=== PATIENT | female | born 1945 | race Caucasian/White ===

== ENCOUNTER → 2016-10-15 | Outpatient (CLI) | payer BC ==
[~2016-10-15] MED LIST: AMLO10TA2 PO; ASPI325T4 PO; CALC600T PO; CIPR-255 PO; EZET10TA63 PO; GARL400T4 PO; HYDR12.56 PO; METO25TA56 PO; OMEG7.5C PO; ONDA4TAB7 SL; SIMV40TA2 PO
[2016-10-15 13:23] LABS: BASO % 0.8 %; BASO ABS # 0.06 K/uL (0-0.2); COMPLETE YES; EOS % 3.4 %; IG% 0.1 %; LYMPH % 33.1 %; MEAN CELL VOLUME 86.9 fL (80-100); MEAN CORPUSCULAR HEMOGLOBIN 29.7 pg (25-34); MEAN CORPUSCULAR HGB CONC 34.1 g/dl (32-36); MEAN PLATELET VOLUME 10.1 fL (7.4-10.4); MONO % 6.9 %; NEUT % 55.7 %; PLATELET COUNT 307 K/uL (130-400); RED BLOOD COUNT 4.72 M/uL (4.2-5.4); WHITE BLOOD COUNT 7.56 K/uL (4.8-10.8)
[2016-10-15 13:43] LABS: ALT/SGPT 21 U/L (12-78); AST/SGOT 17 U/L (15-37); BLOOD UREA NITROGEN 18 mg/dl (7-18); BUN/CREATININE RATIO 21.6 (10-20); CALCIUM 9.3 mg/dl (8.5-10.1); CARBON DIOXIDE 32 mmol/L (21-32); CHLORIDE 103 mmol/L (98-107); CREATININE 0.85 mg/dl (0.60-1.20); GLUCOSE 93 mg/dl (70-99); POTASSIUM 3.8 mmol/L (3.5-5.1); SODIUM 141 mmol/L (136-145)
[2016-10-15 13:54] LABS: ALKALINE PHOSPHATASE 46 U/L (45-117); CHOLESTEROL 148 mg/dl (0-200); CHOLESTEROL/HDL RATIO 2.6; HDL CHOLESTEROL 57 mg/dl; LDL CHOLESTEROL CALCULATED 67 mg/dl; TRIGLYCERIDES 122 mg/dl (0-150); VERY LOW DENSITY LIPOPROT CALC 24 mg/dl
== END | disposition home or self-care (01) ==
LOC: C.LABPBG 08:14
PROVIDERS: ATTEND Internal Medicine
DX: Z00.00 Encounter for general adult medical examination without abnormal findings (principal)

== ENCOUNTER → 2017-10-24 | Outpatient (CLI) | payer BC ==
[2017-10-24 12:05] LABS: BASO % 0.7 %; BASO ABS # 0.06 K/uL (0-0.2); EOS % 5.3 %; EOS ABS # 0.44 K/uL (0-0.5); HEMATOCRIT 40.6 % (37-47); HEMOGLOBIN 14.1 g/dL (12.0-16.0); IG# 0.01 K/uL (0.00-0.02); LYMPH % 32.9 %; LYMPH ABS # 2.71 K/uL (1.2-3.4); MEAN CELL VOLUME 86.9 fL (80-100); MEAN CORPUSCULAR HEMOGLOBIN 30.2 pg (25-34); MEAN CORPUSCULAR HGB CONC 34.7 g/dl (32-36); MEAN PLATELET VOLUME 9.5 fL (7.4-10.4); MONO % 7.9 %; MONO ABS # 0.65 K/uL (0.11-0.59); NEUT % 53.1 %; NEUT ABS # 4.36 K/uL (1.4-6.5); PLATELET COUNT 284 K/uL (130-400); RED CELL DISTRIBUTION WIDTH CV 13.2 % (11.5-14.5); RED CELL DISTRIBUTION WIDTH SD 41.7 fL (36.4-46.3); WHITE BLOOD COUNT 8.23 K/uL (4.8-10.8)
[2017-10-24 12:20] LABS: ALBUMIN 3.5 gm/dl (3.4-5.0); ALT/SGPT 25 U/L (12-78); BLOOD UREA NITROGEN 16 mg/dl (7-18); CALCIUM 9.7 mg/dl (8.5-10.1); CARBON DIOXIDE 30 mmol/L (21-32); CHOLESTEROL 139 mg/dl (0-200); CREATININE 0.83 mg/dl (0.60-1.20); GLUCOSE 92 mg/dl (70-99); POTASSIUM 3.9 mmol/L (3.5-5.1); SODIUM 140 mmol/L (136-145)
[2017-10-24 12:31] LABS: ALKALINE PHOSPHATASE 45 U/L (45-117); AST/SGOT 20 U/L (15-37); LDL CHOLESTEROL CALCULATED 68 mg/dl; TOTAL PROTEIN 7.4 gm/dl (6.4-8.2)
== END | disposition home or self-care (01) ==
LOC: C.LABPBG 08:04
PROVIDERS: ATTEND Internal Medicine
DX: I10 Essential (primary) hypertension (principal); I25.10 Atherosclerotic heart disease of native coronary artery without angina pectoris; E78.5 Hyperlipidemia, unspecified; G47.33 Obstructive sleep apnea (adult) (pediatric)

== ENCOUNTER 2017-11-08 04:10 | Emergency (ER) | payer BC ==
[~2017-11-08] VITALS: Ht 177.8 cm; Wt 84.6 kg
[2017-11-08 04:18] VITALS: TEMP 36.9; Ht 177.8 cm; Wt 84.6 kg
[2017-11-08] MEDS ORDERED: ASPIRIN 324 MG CHEW PO STA (04:28)
--- NOTE | 2017-11-08 04:29 | EMERGENCY ROOM VISIT NOTE ---
History Report prepared by Preet: Agnieszka Rogers Under the Supervision of: Dr. Ravinder Handy M.D. First contact with patient: 04:20 Chief Complaint: CHEST PAIN Stated Complaint: CHEST PAIN Nursing Triage Summary: Pt states she developed midsternal chest pain yesterday morning that has been unrelieved. History of Present Illness The patient is a 72 year old female who presents to the Emergency Room with complaints of constant chest pain beginning yesterday morning. She rates her pain at an 8/10 and states that the pain sometimes radiates to her back. The patient reports having abdominal pain, but denies having nausea, vomiting, and shortness of breath. The patient has a history of a cholecystectomy. She also reports a history of a heart attack 10 about years. The patient states that she takes 2 aspirin every morning and that she already took 2 this morning. She denies leg swelling and calf pain. The patient denies recent travel and a history of blood clots. The patient states that she had a stress test done last year. Source of History: patient Onset: yesterday morning Position: chest Symptom Intensity: rated at an 8/10 Timing: constant Associated Symptoms: + abdominal pain, No SOB, No nausea, No vomiting Review of Systems See HPI for pertinent positives & negatives. A total of 10 systems reviewed and were otherwise negative. Past Medical & Surgical Medical Problems: (1) Diverticulosis Colon (W/O Ment Of Hemorrhage) (2) Hypertension Nos (3) Old Myocardial Infarct Family History FHx: gallbladder disease Social History Smoking Status: Never Smoker Marital Status: Housing Status: lives with significant other Occupation Status: retired Current/Historical Medications Scheduled Amlodipine Besylate (Norvasc), 10 MG PO DAILY Aspirin (Aspirin), 650 MG PO DAILY Atorvastatin (Lipitor), 40 MG PO DAILY Calcium Carbonate (Calcium 600), 600 MG PO DAILY Garlic (Garlic), 2 CAP PO DAILY Hydrochlorothiazide (Hctz), 12.5 MG PO DAILY Metoprolol Tartrate (Lopressor) (Lopressor), 25 MG PO BID Whitmore-3 Fatty Acids (Fish Oil), 1 CAP PO DAILY Allergies Coded Allergies: No Known Allergies (Verified , 11/08/17) Physical Exam Vital Signs Date Time Temp Pulse Resp B/P (MAP) Pulse Ox O2 Delivery O2 Flow Rate FiO2 11/08/17 06:36 63 18 136/76 97 11/08/17 05:00 57 18 117/72 97 Room Air 11/08/17 04:42 68 18 115/60 93 Room Air 11/08/17 04:19 61 11/08/17 04:18 Room Air 11/08/17 04:18 36.9 62 18 170/68 96 Room Air Physical Exam GENERAL: Patient is mildly anxious appearing and in minimal distress. HEENT: No acute trauma, normocephalic atraumatic, mucous membranes moist, no nasal congestion, no scleral icterus. NECK: No stridor, no adenopathy, no meningismus, trachea is midline. LUNGS: No dyspnea. Clear to auscultation and equal bilaterally. No wheeze, no rhonchi. HEART: Regular rate and rhythm. No murmurs, rubs, gallops appreciated. ABDOMEN: Soft, nontender, bowel sounds positive, no masses appreciated, no peritonitis. BACK: No midline tenderness, no CVA tenderness EXTREMITIES: Normal motion all extremities, no cyanosis, no edema. NEUROLOGIC: Alert and oriented, no acute motor or sensory deficits, no focal weakness, cranial nerves grossly intact. SKIN: No rash, no jaundice, no diaphoresis. Medical Decision & Procedures ER Provider Diagnostic Interpretation: Radiology results and stated below per my review. X ray results are stated below per my interpretation: Chest: 1 view: No infiltrate, no effusion, normal cardiac border. Laboratory Results 11/08/17 04:20 Red Blood Count 4.68, Mean Corpuscular Volume 85.9, Mean Corpuscular Hemoglobin 29.7, Mean Corpuscular Hemoglobin Concent 34.6, Mean Platelet Volume 8.8, Neutrophils (%) (Auto) 59.4, Lymphocytes (%) (Auto) 28.4, Monocytes (%) (Auto) 8.4, Eosinophils (%) (Auto) 3.1, Basophils (%) (Auto) 0.5, Neutrophils # (Auto) 5.52, Lymphocytes # (Auto) 2.64, Monocytes # (Auto) 0.78, Eosinophils # (Auto) 0.29, Basophils # (Auto) 0.05 11/08/17 04:20 Test 11/08/17 04:20 11/08/17 06:03 White Blood Count 9.30 K/uL (4.8-10.8) Red Blood Count 4.68 M/uL (4.2-5.4) Hemoglobin 13.9 g/dL (12.0-16.0) Hematocrit 40.2 % (37-47) Mean Corpuscular Volume 85.9 fL (80-100) Mean Corpuscular Hemoglobin 29.7 pg (25-34) Mean Corpuscular Hemoglobin Concent 34.6 g/dl (32-36) Platelet Count 259 K/uL (130-400) Mean Platelet Volume 8.8 fL (7.4-10.4) Neutrophils (%) (Auto) 59.4 % Lymphocytes (%) (Auto) 28.4 % Monocytes (%) (Auto) 8.4 % Eosinophils (%) (Auto) 3.1 % Basophils (%) (Auto) 0.5 % Neutrophils # (Auto) 5.52 K/uL (1.4-6.5) Lymphocytes # (Auto) 2.64 K/uL (1.2-3.4) Monocytes # (Auto) 0.78 K/uL (0.11-0.59) Eosinophils # (Auto) 0.29 K/uL (0-0.5) Basophils # (Auto) 0.05 K/uL (0-0.2) RDW Standard Deviation 41.0 fL (36.4-46.3) RDW Coefficient of Variation 13.1 % (11.5-14.5) Immature Granulocyte % (Auto) 0.2 % Immature Granulocyte # (Auto) 0.02 K/uL (0.00-0.02) Anion Gap 6.0 mmol/L (3-11) Est Creatinine Clear Calc Drug Dose 83.6 ml/min Estimated GFR () 97.0 Estimated GFR (Non- 83.7 BUN/Creatinine Ratio 22.6 (10-20) Calcium Level 9.1 mg/dl (8.5-10.1) Troponin I < 0.015 ng/ml (0-0.045) Bedside Troponin I < 0.030 ng/ml (0-0.045) Laboratory results as reviewed by me. Medications Administered Medications (Trade) Dose Ordered Sig/Vicente Route Start Time Stop Time Status Last Admin Dose Admin Aspirin (Aspirin Chew) 324 mg STK-MED ONCE .ROUTE 11/08/17 04:30 11/08/17 04:31 DC 11/08/17 04:34 324 MG Nitroglycerin (Nitrostat Tab) 0.4 mg STK-MED ONCE .ROUTE 11/08/17 04:30 11/08/17 04:31 DC 11/08/17 04:37 0.4 MG ECG Per My Interpretation Indication: chest pain Rate (beats per minute): 63 Rhythm: normal sinus Findings: no acute ischemic change, no ectopy Change: repeat ECG: Sinus bradycardia, 56, no ectopy, no ischemia ED Course 0422: The patient was evaluated in room A3. A complete history and physical exam was performed. 0511: I checked on the patient and updated her on her X-Ray results. 629: Reevaluated the patient. She still wishes to go home. She notes that she has had this chest pain for almost 24 hours and that it did not get better with Tums yesterday. She does not wish to stay in the hospital, and will call her cornice upholsterer later this morning. She verbalized understanding and agreement of the treatment plan. The patient is ready for discharge. Medical Decision Differential: Cardiac Ischemia (STEMI, NSTEMI, Unstable Angina, etc), Aortic Dissection, Arrhythmia, Pulmonary Embolism, Pneumonia, Pneumothorax, MSK, Infectious, Pericarditis/Myocarditis, Esophageal Rupture, Gastrointestinal, amongst other pathologies entertained. 72 yr old female with substernal chest pressure for the last 24 hours. Resolved with SLNTG and BP much improved. She is feeling well and in no distress. EKG x 2 without ischemia. Trop x 2 negative. Other labs unremarkable. CXR negative. She is in no distress and feeling well several hours post arrival. Symptoms are not consistent with PE, dissection, esophageal rupture. May all be related to reflux given her mild improvement yesterday with tums. She is not interested in coming in to hospital. I made very clear to her that we have not completely ruled out [place] in her and that she is not low risk given her history CAD/HTN. She is stable however and seems capable of making reasonable decision. She and her still with to return home after review of risks and are aware of symptoms that should necessitate immediately return. Advised calling [employer] Officer this morning. Medication Reconcilliation Current Medication List: was personally reviewed by me Blood Pressure Screening Patient's blood pressure: Elevated blood pressure Blood pressure disposition: Referred to PCP Impression Primary Impression: Substernal precordial chest pain Additional Impression: Hypertension Scribe Attestation The scribe's documentation has been prepared under my direction and personally reviewed by me in its entirety. I confirm that the note above accurately reflects all work, treatment, procedures, and medical decision making performed by me. Departure Information Dispostion Home / Self-Care Referrals Mk Connell M.D. (PCP) Forms Call Back Authorization, HOME CARE DOCUMENTATION FORM, IMPORTANT VISIT INFORMATION Patient Instructions Chest Pain - [facility], My [facility] Additional Instructions It is very important you follow up with your primary care provider or cornice upholsterer as soon as possible. while testing was unremarkable today, that does not completely rule out the possibility of a heart attack. If you have worsening pain, difficulty breathing, passing out or other concerning symptoms call 911 or return to ED immediately. Your blood pressure was elevated during this visit. This is quite common in many people who are being evaluated in the Emergency Department for many reasons. However, it is important that you have your Primary Care Provider recheck your blood pressure and discuss whether treatment will be needed. group home elevated blood pressure can lead to strokes, heart attacks, kidney failure amongst other medical issues. If you develop severe headaches, chest pain, weakness in arms or legs, or other concerning symptoms call 911. Problem Qualifiers
[2017-11-08] MEDS ORDERED: NITROGLYCERIN 0.4 MG SL PER TAB CHARGE ONE (04:30)
[2017-11-08] MEDS ORDERED: NITROGLYCERIN 0.4 MG SL PER TAB CHARGE SL PRN (04:30)
[2017-11-08] MEDS ORDERED: ASPIRIN 324 MG CHEW ONE (04:30)
[2017-11-08 04:36] LABS: BASO % 0.5 %; BASO ABS # 0.05 K/uL (0-0.2); EOS % 3.1 %; EOS ABS # 0.29 K/uL (0-0.5); HEMATOCRIT 40.2 % (37-47); HEMOGLOBIN 13.9 g/dL (12.0-16.0); IG# 0.02 K/uL (0.00-0.02); LYMPH % 28.4 %; LYMPH ABS # 2.64 K/uL (1.2-3.4); MEAN CELL VOLUME 85.9 fL (80-100); MEAN CORPUSCULAR HEMOGLOBIN 29.7 pg (25-34); MEAN CORPUSCULAR HGB CONC 34.6 g/dl (32-36); MEAN PLATELET VOLUME 8.8 fL (7.4-10.4); MONO % 8.4 %; MONO ABS # 0.78 K/uL (0.11-0.59); NEUT % 59.4 %; NEUT ABS # 5.52 K/uL (1.4-6.5); PLATELET COUNT 259 K/uL (130-400); RED CELL DISTRIBUTION WIDTH CV 13.1 % (11.5-14.5)
[2017-11-08] MEDS ORDERED: LPT40 PO (04:50)
[2017-11-08 04:54] LABS: BLOOD UREA NITROGEN 16 mg/dl (7-18); CALCIUM 9.1 mg/dl (8.5-10.1); CARBON DIOXIDE 29 mmol/L (21-32); CREATININE 0.72 mg/dl (0.60-1.20); GLUCOSE 105 mg/dl (70-99); POTASSIUM 3.6 mmol/L (3.5-5.1); SODIUM 140 mmol/L (136-145)
[2017-11-08] MEDS ORDERED: GARL1CAP6 PO (04:54)
--- NOTE | 2017-11-08 06:25 | DIAGNOSTIC IMAGING REPORT ---
CHEST ONE VIEW PORTABLE CLINICAL HISTORY: Chest Pain COMPARISON STUDY: Chest radiograph February 16, 2015. FINDINGS: Lung volumes are normal. No pneumothorax or pleural effusion is noted. There is no evidence for pulmonary edema. No consolidation. There is mild enlargement of the cardiac silhouette. Mediastinal contours are otherwise unremarkable. IMPRESSION: 1. No acute cardiopulmonary findings. 2. Mild cardiomegaly. Electronically signed by: Mao Ragland M.D. 11/08/2017 6:23 AM Dictated Date/Time: 11/08/2017 6:23 AM
[2017-11-08 06:36] VITALS: BP 136/76; PULSE 63; O2SAT 97
== END 2017-11-08 06:38 | disposition home or self-care (01) ==
LOC: C.EDB 04:11 → C.EDA 06:38
DX: R07.2 Precordial pain (principal); I10 Essential (primary) hypertension; Z79.82 Long term (current) use of aspirin; I25.2 Old myocardial infarction; K57.90 Diverticulosis of intestine, part unspecified, without perforation or abscess without bleeding; Z83.79 Family history of other diseases of the digestive system